=== PATIENT | female | born 1955 | race Caucasian/White ===

== ENCOUNTER 2016-12-22 15:41 | Emergency (ER) | payer OTHER ==
[~2016-12-22] VITALS: Ht 154.9 cm; Wt 74.8 kg
== END 2016-12-22 17:50 | disposition short-term general hospital (02) ==
LOC: ER 15:41
DX: M54.5 Low back pain (principal); J32.9 Chronic sinusitis, unspecified; R42 Dizziness and giddiness; F17.210 Nicotine dependence, cigarettes, uncomplicated; Z88.8 Allergy status to other drugs, medicaments and biological substances
CPT/HCPCS: A9150; J1885